=== PATIENT | male | born 1945 | race Caucasian/White ===

== ENCOUNTER 2024-07-06 19:50 | Emergency (ER) | payer OTHER ==
--- NOTE | 2024-07-06 21:19 | RAD REPORT ---
EXAM: Foot Left 3 View HISTORY: PAIN COMPARISON: None FINDINGS: Bones: No acute fracture identified. Remote second and fifth metatarsal fracture. Note that the dista l and middle phalanges are difficult to assess due to positioning of the patient's toes. Alignment:No significant malalignment. Degenerative changes:Plantar aspect calcaneal spurs. Degenerative changes present at the first and se cond tarsometatarsal joints. Other: n/a IMPRESSION: No acute left foot fracture though some limitation as noted above.
[2024-07-06] MEDS ORDERED: LIDOCAINE 100 MG/5 ML SYRINGE IV ONE (22:18)
[2024-07-06] MEDS ORDERED: LIDOCAINE 1% 20 ML MDV ONE (22:20)
--- NOTE | 2024-07-06 23:37 | ER ---
Nurse's Notes [facility] Name: Rual Mcguire Age: 79 yrs Sex: Male : 1945 Arrival Date: 07/06/2024 Time: 19:50 Bed 19 Private MD: Diagnosis: Foot Laceration/ Open wound of foot-left Presentation: 07/06 19:55 Chief complaint: EMS states: patient fell from the wheelchair resulting to laceration rg5 ot 2nd, 3rd \T\ 4th toe left foot. 19:55 Method Of Arrival: EMS: [facility] rg5 19:55 Coronavirus screen: Client denies travel out of the [place] in the last 14 days. Ebola rg5 Screen: Patient negative for fever greater than or equal to 101.5 degrees Fahrenheit, and additional compatible Ebola Virus Disease symptoms Patient denies exposure to infectious person. Patient denies travel to an Ebola-affected area in the 21 days before illness onset. Complicating Factors: There are no complicating factors for this patient. Initial Sepsis Screen: Does the patient meet any 2 criteria? No. Patient's initial sepsis screen is negative. Does the patient have a suspected source of infection? No. Patient's initial sepsis screen is negative. Risk Assessment: Do you want to hurt yourself or someone else? Patient reports no desire to harm self or others. Onset of symptoms was July 06, 2024. Care prior to arrival:. Activity prior to arrival:. Mechanism of Injury: Fall. 19:55 Acuity: DONTE 3 rg5 Triage Assessment: 19:55 General: Appears in no apparent distress. Behavior is calm, cooperative, appropriate rg5 for age. Pain: Complains of pain in left foot. EENT: No deficits noted. Neuro: Level of Consciousness is awake, alert, obeys commands. Cardiovascular: Denies chest pain, Patient's skin is warm and dry. Respiratory: Airway is patent Trachea midline Respiratory effort is even, unlabored, Respiratory pattern is regular, symmetrical. GI: No signs and/or symptoms were reported involving the gastrointestinal system. Abdomen is round non-distended. : No signs and/or symptoms were reported regarding the genitourinary system. Derm: Skin is fragile, Skin is dry, Skin is normal, Skin temperature is warm. Musculoskeletal: Circulation, motion, and sensation intact. Range of motion: intact in all extremities. Injury Description: Laceration sustained to left foot and right elbow. Historical: - Allergies: 19:55 Lisinopril; rg5 19:55 PENICILLINS; rg5 19:55 Evoxac; rg5 19:55 CT SCAN IODINE; rg5 - PMHx: 19:55 Diabetes mellitus; SJOGRENS LUPUS; Hypothyroidism; Chronic obstructive lung disease; rg5 Hypertensive disorder; - Immunization history:: Adult Immunizations up to date. - Infectious Disease History:: Denies. - Social history:: Smoking status: unknown. Screenin:55 [facility] ED Fall Risk Assessment (Adult) History of falling in the last 3 months, rg5 including since admission Yes- single mechanical fall (1 pt) Confusion or Disorientation No (0 pts) Intoxicated or Sedated No (0 pts) Impaired Gait Yes (1 pt) Mobility Assist Device Used Yes (1 pt) Altered Elimination No (0 pt) Score/Fall Risk Level 3 or more points = High Risk Oriented to surroundings, Maintained a safe environment, Educated pt \T\ family on fall prevention, incl call for assistance when getting out of bed, Hourly rounding (assess needs \T\ fall precautionary measures) done. 19:55 Abuse screen: Denies threats or abuse. Nutritional screening: No deficits noted. rg5 Tuberculosis screening: No symptoms or risk factors identified. Assessment: 20:00 Reassessment: see triage assessment. rg5 20:00 Injury Description: Laceration sustained to left foot is superficial, 0.5 to 2.5 cm rg5 long. 21:00 Reassessment: No changes from previously documented assessment. Patient and/or family rg5 updated on plan of care and expected duration. Pain level reassessed. Patient is alert, oriented x 3, equal unlabored respirations, skin warm/dry/pink. 22:00 Reassessment: No changes from previously documented assessment. Patient and/or family rg5 updated on plan of care and expected duration. Pain level reassessed. Patient is alert, oriented x 3, equal unlabored respirations, skin warm/dry/pink. 23:00 Reassessment: No changes from previously documented assessment. Patient and/or family rg5 updated on plan of care and expected duration. Pain level reassessed. Patient is alert, oriented x 3, equal unlabored respirations, skin warm/dry/pink. 07/07 00:00 Reassessment: No changes from previously documented assessment. Patient and/or family rg5 updated on plan of care and expected duration. Pain level reassessed. Patient is alert, oriented x 3, equal unlabored respirations, skin warm/dry/pink. Vital Signs: 07/06 19:55 BP 172 / 99; Pulse 83; Resp 18; Temp 98.4; Pulse Ox 97% on R/A; Weight 90.72 kg; Height rg5 5 ft. 11 in. ; Pain 5/10; 20:15 BP 172 / 99; Pulse 83; Resp 18; Temp 98.4; Pulse Ox 97% on R/A; Weight 90.72 kg; Height rg5 5 ft. 11 in. ; Pain 5/10; 21:25 BP 155 / 91; Pulse 83; Resp 17; Pulse Ox 98% on R/A; rg5 23:00 BP 153 / 88; Pulse 85; Pulse Ox 97% on R/A; Pain 5/10; rg5 07/07 00:00 BP 151 / 87; Pulse 84; Resp 18; Pulse Ox 98% on R/A; rg5 07/06 20:15 Body Mass Index 27.89 (90.72 kg, 180.34 cm) rg5 07/06 19:55 Pain Scale: Adult rg5 20:15 Pain Scale: Adult rg5 23:00 Pain Scale: Adult rg5 ED Course: 07/06 19:55 Patient arrived in ED. lg3 19:55 Arm band placed on. rg5 19:55 Patient has correct armband on for positive identification. Bed in low position. Door rg5 closed. Noise minimized. Warm blanket given. 20:00 Narayan Penaloza, PAT is Primary Nurse. rg5 20:00 Josh Gaona PA is PHCP. cp 20:00 Josh Gonzales MD is Attending Physician. cp 20:05 Triage completed. rg5 21:11 XRAY Foot LEFT 3 View In Process Unspecified. EDMS 23:00 Assist provider with laceration repair using sutures. Set up tray. Performed by Josh BERNARD Dressed with 4X4s, Patient tolerated. 23:00 Patient did not have IV access during this emergency room visit. rg5 07/07 00:12 Provided Education on: post er care. rg5 Administered Medications: 07/06 23:25 Drug: Lidocaine Topical Solution (4%) 10 ml Topical once Route: Topical; Site: wound; cp 23:38 CANCELLED (Physician Discretion): [id number] mg PO once cp 23:44 Drug: CeFAZolin IM 1 grams IM once Route: IM; Site: right gluteus; rg5 07/07 00:13 Follow up: Response: No adverse reaction rg5 Medication: 07/06 20:00 VIS not applicable for this client. rg5 Outcome: 23:37 Discharge ordered by . mel 07/07 00:11 Discharged to home via wheelchair, rg5 Condition: stable Discharge instructions given to patient, family, Instructed on discharge instructions, follow up and referral plans. Demonstrated understanding of instructions, follow-up care, medications, Prescriptions given X 1, 00:13 Patient left the ED. rg5 Signatures: Dispatcher [employer] EDMS Josh Gaona PA PA cp Able, Lacie, RN RN lg3 Narayan Penaloza RN RN rg5 Corrections: (The following items were deleted from the chart) 07/06 20:13 19:55 Allergies: No Known Allergies; rg5 rg5 20:13 19:55 PMHx: CT SCAN IODINE; rg5 rg5 22:26 19:55 Chief complaint: EMS states: patient fell from the wheelchair resulting to rg5 laceration ot 2nd toe left foot rg5
--- NOTE | 2024-07-06 23:37 | EDPHYS ---
Physician Documentation [facility] Name: Raul Mcguire Age: 79 yrs Sex: Male : 1945 Arrival Date: 07/06/2024 Time: 19:50 Bed 19 Private MD: ED Physician Josh Gonzales HPI: 07/06 21:00 This 79 yrs old Male presents to ER via EMS with complaints of Laceration. cp 21:00 The patient presents with an injury, a laceration. The complaints affect the left foot. cp Context: resulted after fall from wheelchair earlier today. 21:00 Onset: The symptoms/episode began/occurred today. Associated signs and symptoms: The cp patient has no apparent associated signs or symptoms. Historical: - Allergies: 19:55 Lisinopril; rg5 19:55 PENICILLINS; rg5 19:55 Evoxac; rg5 19:55 CT SCAN IODINE; rg5 - PMHx: 19:55 Diabetes mellitus; SJOGRENS LUPUS; Hypothyroidism; Chronic obstructive lung disease; rg5 Hypertensive disorder; - Immunization history:: Adult Immunizations up to date. - Infectious Disease History:: Denies. - Social history:: Smoking status: unknown. ROS: 21:05 MS/extremity: Positive for laceration, paresthesias, injury, cp 21:05 Constitutional: history per hpi cp 21:05 All other systems are negative, Exam: 21:10 Head/Face: Normocephalic, atraumatic. cp 21:10 Constitutional: The patient appears in no acute distress, alert, awake, well developed, well nourished, uncomfortable, 21:10 Chest/axilla: Inspection: normal, 21:10 Cardiovascular: Rate: normal, 21:10 Respiratory: the patient does not display signs of respiratory distress, Respirations: normal, no use of accessory muscles, no retractions, labored breathing, is not present, 21:10 Abdomen/GI: Inspection: abdomen appears normal, Palpation: abdomen is soft and non-tender, in all quadrants, 21:10 Musculoskeletal/extremity: Extremities: noted in the left foot: laceration, pain, swelling, tenderness, Perfusion: the extremity is normally perfused throughout, the left foot decreased sensation, Vital Signs: 19:55 BP 172 / 99; Pulse 83; Resp 18; Temp 98.4; Pulse Ox 97% on R/A; Weight 90.72 kg; Height rg5 5 ft. 11 in. ; Pain 5/10; 20:15 BP 172 / 99; Pulse 83; Resp 18; Temp 98.4; Pulse Ox 97% on R/A; Weight 90.72 kg; Height rg5 5 ft. 11 in. ; Pain 5/10; 21:25 BP 155 / 91; Pulse 83; Resp 17; Pulse Ox 98% on R/A; rg5 23:00 BP 153 / 88; Pulse 85; Pulse Ox 97% on R/A; Pain 5/10; rg5 07/07 00:00 BP 151 / 87; Pulse 84; Resp 18; Pulse Ox 98% on R/A; 5 07/06 20:15 Body Mass Index 27.89 (90.72 kg, 180.34 cm) [facility] 07/06 19:55 Pain Scale: Adult rg 20:15 Pain Scale: Adult [facility] 23:00 Pain Scale: Adult rg Laceration: 07/06 23:35 Wound Repair of 7cm ( 2.8in ) subcutaneous laceration to plantar side base of left cp second and left third and left fourth toes. Linear shaped.. Distal neuro/vascular/tendon intact. Anesthesia: Wound infiltrated with 8 mls of 2% lidocaine. Wound prep: Moderate cleansing by nurse. Skin closed with 11 4-0 Prolene using interrupted sutures and sterile technique. Dressed with Bacitracin. Patient tolerated well. MDM: 20:00 Medical Screening Exam initiated cp 23:36 Data reviewed: vital signs, nurses notes, radiologic studies, plain films, and as a cp result, I will discharge patient. 23:36 Differential diagnosis: fracture, foreign body, cellulitis. I considered the following cp discharge prescriptions or medication management in the emergency department Medications were administered in the Emergency Department. See MAR. Care significantly affected by the following chronic conditions: Diabetes, Chronic Obstructive Pulmonary Disease. 07/06 20:13 Order name: XRAY Foot LEFT 3 View cp 07/06 21:16 Order name: Wound Care; Complete Time: 22:00 cp 07/06 23:36 Order name: Wound dressing; Complete Time: 23:44 cp Administered Medications: 23:25 Drug: Lidocaine Topical Solution (4%) 10 ml Topical once Route: Topical; Site: wound; cp 23:38 CANCELLED (Physician Discretion): [id number] mg PO once cp 23:44 Drug: CeFAZolin IM 1 grams IM once Route: IM; Site: right gluteus; rg5 07/07 00:13 Follow up: Response: No adverse reaction rg5 Disposition Summary: 07/06/24 23:37 Discharge Ordered Notes: Location: Home cp Problem: new cp Symptoms: have improved cp Condition: Stable cp Diagnosis - Foot Laceration/ Open wound of foot - left cp Followup: cp - With: Private Physician - When: 10 - 14 days - Reason: Staple/Suture removal Discharge Instructions: - Discharge Summary Sheet cp - Laceration Care, Adult cp Forms: - Medication Reconciliation Form cp - Antibiotic Education cp - Prescription Opioid Use cp - Patient Portal Instructions cp - Leadership Thank You Letter cp Prescriptions: - Cephalexin 500 mg Oral Capsule - take 1 capsule ORAL route every 8 hours for 10 days; 30 capsule; Refills: 0, cp Product Selection Permitted Addendum: 07/10/2024 15:39 Co-signature as Attending Physician, Josh Gonzales MD I agree with the assessment and c irwin plan of care. Signatures: Dispatcher [employer] EDJosh Valdivia MD MD cha Page, Corey, PA PA cp Narayan Penaloza, RN RN rg5 Corrections: (The following items were deleted from the chart) 07/06 20:13 19:55 Allergies: No Known Allergies; rg5 rg5 20:13 19:55 PMHx: CT SCAN IODINE; rg5 rg5 23:38 23:38 Cephalexin PO 500 mg PO once ordered. cp cp 07/07 23:28 07/06 21:00 Context: resulted after wheelchair rolled over foot earlier today, cp cp 07/07 23:36 07/06 21:10 Head/Face: Normocephalic, atraumatic. cp cp 07/07 23:36 07/06 23:20 Wound Repair of 7cm ( 2.8in ) subcutaneous laceration to plantar side base cp of left second and left third and left fourth toes. Linear shaped.. Distal neuro/vascular/tendon intact. Anesthesia: Wound infiltrated with 8 mls of 2% lidocaine. Wound prep: Moderate cleansing by nurse. Skin closed with 11 4-0 Prolene using interrupted sutures and sterile technique. Dressed with Bacitracin. Patient tolerated well. cp
[2024-07-06] MEDS ORDERED: CEFAZOLIN SODIUM 1 GM/VIAL ONE (23:47)
[2024-07-07 00:18] VITALS: TEMP 98.4
[2024-07-07 00:23] VITALS: BP 151/87; O2SAT 98
== END 2024-07-07 00:13 | disposition home or self-care (01) ==
LOC: ER 19:50 → EDBD 19:50 → ER 07-07 00:13
DX: S91.312A Laceration without foreign body, left foot, initial encounter (principal); W05.0XXA Fall from non-moving wheelchair, initial encounter
CPT/HCPCS: 73630; 96372; 99284; 12002; J2003; J0690